=== PATIENT | male | born 1955 | race Caucasian/White ===

== ENCOUNTER → 2024-09-20 12:24 | Outpatient (REF) | payer OTHER, MEDICARE, SELFPAY ==
[2024-09-20 13:34] LABS: HDL Cholesterol 56 mg/dl; LDL Cholesterol, Calculated 215 mg/dl; Total Cholesterol 295 mg/dl (50-199); Triglyceride 124 mg/dl (10-149); Very Low Density Lipoprotein 24 mg/dl (0-30)
[2024-09-20 14:05] LABS: PSA, Total - Diagnostic 0.37 ng/ml (0.0-4.0); TSH 1.56 uIU/ml (0.47-4.68)
[2024-09-23 01:18] LABS: % Free Testosterone 1.4 % (1.6-2.9); Free Testosterone 53 pg/mL (47-244); Sex Hormone Binding Globulin 50 nmol/L (19-76); Total Testosterone 372 ng/dL (300-720)
== END ==
LOC: OLAB 12:24
PROVIDERS: ATTENDING PHYSICIAN Family Medicine
DX: F52.21 Male erectile disorder (principal); E78.2 Mixed hyperlipidemia; Z12.5 Encounter for screening for malignant neoplasm of prostate
CPT/HCPCS: 80061; 84153; 84270; 84402; 84403; 84443

== ENCOUNTER 2024-10-17 06:21 | Day surgery (SDC) | payer OTHER, MEDICARE, SELFPAY ==
[2024-09-20 13:22] LABS: Hematocrit 48.3 % (39.0-52.0); Hemoglobin 16.6 g/dL (13.0-18.0); Mean Corp Hgb Conc. 34.4 g/dL (33.0-37.0); Mean Corpuscular Hgb 32.5 pg (27.0-31.0); Mean Corpuscular Volume 94.7 fL (80.0-94.0); Mean Platelet Volume 10.6 fL (7.4-10.4); Platelet Count 172 10^3/uL (130-400); Red Cell Dist. Width 12.6 % (11.5-14.5)
[2024-09-20 13:35] LABS: ALT (SGPT) 60 U/L (0-50); AST (SGOT) 42 U/L (17-59); Albumin 4.8 g/dl (3.5-5.0); Alkaline Phosphatase 47 U/L (38-126); Blood Urea Nitrogen 16 mg/dl (9-20); Calcium 9.5 mg/dl (8.4-10.2); Carbon Dioxide 23 mmol/L (22-30); Chloride 105 mmol/L (98-107); Glucose 107 mg/dl (70-99); Potassium 4.2 mmol/L (3.5-5.1); Sodium 141 mmol/L (135-145); Total Bilirubin 1.5 mg/dl (0.2-1.3); Total Protein 7.6 g/dl (6.3-8.2); eGFR > 60.00
[2024-09-20 14:29] VITALS: BMI 34.5
[2024-09-20 14:43] LABS: Glycohemoglobin (HgbA1c) 5.6 % (4.0-5.6)
--- NOTE | 2024-10-03 12:38 | VNURNOTE ---
Patient is scheduled for R KAT on 10/[address] Abel[address] [facility] spoke with patient. Introduced role of [facility] Liaison. Patient reports that he lives with his in a MULTI story home.
There are 3 steps to enter and a flight of steps to the second floor.
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 He currently functions independently. He has a cane and rolling walker. He will be obtaining a raised toilet seat.
PCP is Dr Megan Ca.
Discussed [facility] joint protocol and post surgical plans.
Patient is considering staying overnight and then going to outpt PT.
Patient stated he will call to schedule outpt PT either [facility] or [facility]. Date TBD.
Patient lives in [place]/ [facility] of [facility] network. He tells this author he has pre-op appt on . Will follow up after pre-op appt.
Plan: TBD. SDS with [facility] or stay over w/ outpt PT
--- NOTE | 2024-10-10 12:11 | VNURNOTE ---
Spoke with patient. He confirms he will be same day surgery and has outpt PT appt with [facility] on 10/21. Referral sent to [facility] for same day joint. Emailed to Luis.
SAME DAY TOTAL JOINT PROGRAM VISITING NURSE AND VISITING PHYSICAL THERAPY CONSULTATION REQUEST:
PATIENT: Reymundo Farmer
ADDRESS: [address] [place] [address] [place] [address]
INSURANCE: Medicare [id number]
SECONDARY INS: [employer] [id number]
PATIENT :59
PATIENT CONTACT #: HOME / CELL [phone]
FAMILY CONTACT: Angelic spouse cell # [phone]
SURGEON: Dr Abel
SURGERY PLANNED: R KAT
DATE OF SURGERY: 10/17/24
TOTAL KNEE PROTOCOL: VN AND VISITING PT, ROM, WBAT, CHANGE DRESSING ONLY IF NEEDED
TOTAL HIP PROTOCOL: VN AND VISITING PT, POSTERIOR APPROACH HIP PRECAUTIONS, CHANGE DRESSING ONLY IF NEEDED
CALL [phone] AFTER 1300 DAY BEFORE SURGERY TO FIND OUT SURGERY TIME
[2024-10-12 14:46] VITALS: BMI 34.5
[2024-10-17] VITALS (16 sets, daily range): BP systolic 111–159; BP diastolic 64–96; O2SAT 97; BMI 34.5
--- NOTE | 2024-10-17 07:22 | W.DS.TRANS ---
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
-
Discharge Instructions:
Sleep Apnea Risk Low
Discharge Diagnosis/Procedures Right hip replacement Dr. Abel 10/17/24
Diet As tolerated
Activity With assistance,With Walker,As tolerated
Driving Restrictions No driving
Bathing Restrictions OK to Shower
Other Services PT
Wound Care Aquacel in place 7-10 days then incision open to
air
Instructions:
Stand-Alone Forms: Total Hip/Knee Replacement D/C
Changes to Home Medications: Yes
Discharge Medications:
DC Medications w/original date entered in [facility]
atorvastatin 40 mg tablet (Lipitor) 40 mg PO QPM 10/11/24
acetaminophen 500 mg capsule 1,000 mg (2 x 500 mg) PO Q6H PRN Pain #60 caps 10/17/24
aspirin 325 mg tablet 325 mg PO DAILY #30 tabs 10/17/24
celecoxib 100 mg capsule (Celebrex) 100 mg PO BID #30 caps 10/17/24
dexamethasone 4 mg tablet 4 mg PO BID #7 tabs 10/17/24
docusate sodium 100 mg capsule (Colace) 100 mg PO BID #14 caps 10/17/24
ondansetron 4 mg disintegrating tablet 4 mg PO Q8H #14 tabs 10/17/24
oxycodone 5 mg tablet 5 mg PO Q6H PRN Pain #30 tabs 10/17/24
sennosides 8.6 mg tablet (Senokot) 8.6 mg PO BID PRN Constipation #14 tabs 10/17/24
Home Medication Changes
aspirin 325 mg tablet 325 mg PO DAILY #30 tabs 10/17/24
celecoxib 100 mg capsule (Celebrex) 100 mg PO BID #30 caps 10/17/24
dexamethasone 4 mg tablet 4 mg PO BID #7 tabs 10/17/24
docusate sodium 100 mg capsule (Colace) 100 mg PO BID #14 caps 10/17/24
ondansetron 4 mg disintegrating tablet 4 mg PO Q8H #14 tabs 10/17/24
oxycodone 5 mg tablet 5 mg PO Q6H PRN Pain #30 tabs 10/17/24
sennosides 8.6 mg tablet (Senokot) 8.6 mg PO BID PRN Constipation #14 tabs 10/17/24
Pending Results: No
[2024-10-17] MEDS: TYLENOL 650 MG PO (07:29)
[2024-10-17] MEDS: CELEBREX 200 MG PO (07:30)
[2024-10-17] MEDS: ROXICODONE 5 MG PO (12:22)
[2024-10-17] MEDS: ANCEF 5 IV (13:05)
[2024-10-17] MEDS: COMPAZINE 10 MG IV (13:52)
[2024-10-17] MEDS: ProAmatine 5 MG PO (14:54)
[2024-10-17] MEDS: FLOMAX 0.8 MG PO (14:54)
[2024-10-17] MEDS: LASIX 10 MG IV (14:54)
== END 2024-10-17 15:35 | disposition home or self-care (01) ==
LOC: SDS 06:21
PROVIDERS: ATTENDING PHYSICIAN Specialist; FAMILY PHYSICIAN Family Medicine
DX: M16.11 Unilateral primary osteoarthritis, right hip (principal); E66.9 Obesity, unspecified; Z68.33 Body mass index [BMI] 33.0-33.9, adult
CPT/HCPCS: 27130; 36415; 73502; 80053; 83036; 85027; 86850; 86900; 86901; 87070; 93005; 97162; C1713; C1776